=== PATIENT | male | born 1990 | race American Indian/Alaskan Native ===

== ENCOUNTER → 2021-03-09 | Outpatient (CLI) | payer OTHER ==
[~2021-03-09] MED LIST: ISOVUE-370 76% 100ML VIAL As Ordered ONE
== END ==
LOC: M RAD 11:14
PROVIDERS: ATTEND Otolaryngology
DX: J34.89 Other specified disorders of nose and nasal sinuses (principal); J34.1 Cyst and mucocele of nose and nasal sinus; J32.0 Chronic maxillary sinusitis; R22.1 Localized swelling, mass and lump, neck
CPT/HCPCS: 70486; 70491; Q9967